=== PATIENT | female | born 1985 | race Caucasian/White ===

== ENCOUNTER 2019-01-26 15:12 | Emergency (ER) | payer OTHER ==
[~2019-01-26] VITALS: Ht 160 cm; Wt 61.4 kg
[~2019-01-26 15:12] MED LIST: AMOX250C17 PO; ATOR20TA37 PO; CARB25PO PO; LEVO100T5 PO; SERT50TA28 PO; [UNRECOGNIZED DRUG - CODE] PO
--- NOTE | 2019-01-26 15:30 | NUR ---
Pt BIB [facility], c/o anxiety exacerbation & 3 day binge drinking whiskey. [facility] Pt treated w/ 4mg Zofran POTATO LOADER, still complaining of nausea. Pt dressed in gown & belongings removed from room, sitter at doorway. Pt has been selfharming with no SI, states she has been cutting herself in order to attempt to control anxiety. Pt intoxicated at time of arrival, cooperative with RN.
--- NOTE | 2019-01-26 15:45 | NUR ---
Pt given saltines and sprite for continued nausea, sitter at doorway, NAD, no needs at this time
[2019-01-26] MEDS ORDERED: ZIPRASIDONE 20 MG INJ IM ONE ×2 (16:09→16:30)
[2019-01-26] MEDS ORDERED: DIPHENHYDRAMINE 50 MG/ML, 1ML IM ONE (16:30)
--- NOTE | 2019-01-26 16:30 | NUR ---
PT PLACED IN RESTRAINTS AT THIS TIME D/T PT'S INABILITY TO REFRAIN FROM SELF HARMING BEHAVIORS. PT WAS BANGING HER HEAD AGAIN BEDRAIL, NO INJURY NOTED. PT COOPERATIVE WITH RESTRAINING PROCESS, PT TEARFUL AND STATES "IT WAS OKAY FOR ME TO FIGHT YOUR WAR BUT IT'S NOT OKAY FOR ME TO DO THIS". RN ATTEMPTED TO COMFORT PT AND EXPLAIN THAT WE ARE TRYING TO HELP HER BUT WE CANNOT LET HER HARM HERSELF. SITTER AT DOORWAY, PT IN SUICIDE SECURED ROOM, ALL BELONGINGS PLACED IN SINGLE BAG AND LOCKED IN ED LOCKER. WCTM.
[2019-01-26 16:45] LABS: BASOPHILS # (AUTO) 0.02 x10^3/uL (0-0.1); BASOPHILS % (AUTO) 1 % (0-1); EOSINOPHILS # (AUTO) 0.05 x10^3/uL (0-0.4); EOSINOPHILS % (AUTO) 1 % (1-7); LYMPHOCYTES # (AUTO) 1.12 x10^3/uL (1-3.4); LYMPHOCYTES % (AUTO) 26 % (22-44); MD NO; MEAN CORPUSCULAR HEMOGLOBIN 30.7 pg (27.0-34.8); MEAN CORPUSCULAR HGB CONC 33.9 g/dL (32.4-35.8); MEAN CORPUSCULAR VOLUME 90.6 fL (80-100); MEAN PLATELET VOLUME 7.3 fL (7.4-10.4); MONOCYTES # (AUTO) 0.14 x10^3/uL (0.2-0.8); MONOCYTES % (AUTO) 3 % (2-9); NEUTROPHILS # (AUTO) 3.01 x10^3/uL (1.8-6.8); NEUTROPHILS % (AUTO) 69 % (42-75); PLATELET COUNT 241 x10^3/uL (130-400); RED BLOOD COUNT 4.82 x10^6/uL (3.82-5.3); RED CELL DISTRIBUTION WIDTH 13.6 % (9.6-15.2)
--- NOTE | 2019-01-26 16:45 | NUR ---
PT IN BED, GIVEN BLANKET, PT STILL STATES SHE IS UNABLE TO REFRAIN FROM HURTING HERSELF, SITTER AT DOORWAY, WCTM.
[2019-01-26 16:55] LABS: ALANINE AMINOTRANSFERASE 68 U/L (12-78); ANION GAP 13 mmol/L (5-15); CALCIUM 8.8 mg/dL (8.5-10.1); CHLORIDE 109 mmol/L (98-107); CREATININE 0.79 mg/dL (0.55-1.02)
[2019-01-26 16:56] LABS: SALICYLATE LEVEL < 1.7 mg/dL (2.8-20.0)
[2019-01-26 17:00] LABS: ALKALINE PHOSPHATASE 98 U/L (45-117); BILIRUBIN,TOTAL 0.5 mg/dL (0.2-1.0); TOTAL PROTEIN 7.4 g/dL (6.4-8.2)
--- NOTE | 2019-01-26 17:00 | NUR ---
Pt requesting to use the restroom, states that she will abstain from selfharming behavior, restrains D/C'ed at this time. Pt ambulating to restroom with RN assistance.
[2019-01-26 17:07] LABS: ACETAMINOPHEN < 2 mcg/mL (10-30)
--- NOTE | 2019-01-26 17:10 | NUR ---
Pt unable to urinate at this time, again stating that she will abstain from self harming behavior. Pt back in bed in suicide secured room, sitter at doorway, NAD, no needs at this time. ANALY.
--- NOTE | 2019-01-26 17:45 | NUR ---
Pt in bed in suicide secured room, NAD, no needs at this time, sitter at doorway, WCTM. Dinner tray ordered.
--- NOTE | 2019-01-26 19:06 | NUR ---
ASSUMED CARE OF PATIENT. BEDSIDE REPORT GIVEN TO ELADIO BARAJAS
[2019-01-26] MEDS ORDERED: DIPHENHYDRAMINE 50 MG/ML, 1ML ONE (19:11)
--- NOTE | 2019-01-26 19:26 | NUR ---
PT RESTING IN ROOM. PT GIVEN A WARM BLANKET. SITTER AT DOOR. WILL CONTINUE TO MONITOR.
--- NOTE | 2019-01-26 19:47 | NUR ---
PT PACING AROUND ROOM. DR BARNES AWARE. SITTER AT DOOR. WILL CONTINUE TO MONITOR.
[2019-01-26] MEDS ORDERED: LORazepam 1MG TABLET ONE (19:48)
--- NOTE | 2019-01-26 19:52 | NUR ---
PT GIVEN ATIVAN. NO ACUTE DISTRESS NOTED. SITTER AT DOOR. WILL CONTINUE TO MONITOR.
[2019-01-26] MEDS ORDERED: LORazepam 1MG TABLET PO ONE (20:00)
--- NOTE | 2019-01-26 20:38 | NUR ---
PT RESTING CALM IN ROOM. SITTER AT DOOR. WILL CONTINUE TO MONITOR.
--- NOTE | 2019-01-26 21:44 | NUR ---
PT RESTING IN ROOM. SITER AT DOOR. NO ACUTE DISTRESS NOTED. PT FEELING CALM. CALL LIGHT IN PLACE. WILL CONTINUE TO MONITOR.
--- NOTE | 2019-01-26 22:29 | NUR ---
PT RESTING IN ROOM. REGULAR RESP. SITTER AT DOOR. NO ACUTE DISTRESS NOTED. WILL CONTINUE TO MONITOR.
[2019-01-26 23:25] LABS: AMPHETAMINE SCREEN, URINE Negative (Negative); BARBITURATE SCREEN, URINE Negative (Negative); BENZODIAZEPINE SCREEN, URINE Negative (Negative); CANNABINOID SCREEN, URINE Positive (Negative); COCAINE SCREEN, URINE Negative (Negative); METHADONE SCREEN, URINE Negative (Negative); OPIATE SCREEN, URINE Negative (Negative)
--- NOTE | 2019-01-26 23:57 | NUR ---
TP RN: TELEPSYCH CONSULT INITIATED
--- NOTE | 2019-01-27 00:10 | NUR ---
PT RESTING IN ROOM. NO ACUTE DISTRESS NOTED. SITTER AT DOOR. WILL CONTINUE TO MONITOR.
--- NOTE | 2019-01-27 01:00 | NUR ---
REPORT GIVEN ELADIO AVILA
--- NOTE | 2019-01-27 01:04 | NUR ---
BEDSIDE REPORT GIVEN TO ELADIO AVILA
--- NOTE | 2019-01-27 01:05 | NUR ---
RECEIVED BS REPORT FROM ELADIO DIEGO TO ASSUME CARE OF PT. PT. SITTING UP ON HOSPITAL BED ROCKING BACK AND FORTH. GILMAR. ROOM IS SECURED AND SITTER IN [place]. Addendum: 01/27/19 at 0120 by JONI PT IS ON [facility], NOT HOSPITAL BED.
--- NOTE | 2019-01-27 01:12 | NUR ---
TELEPSYCH BOT PLACED IN ROOM AND PROCESS DISCUSSED WITH PT. PT. PACING AROUND ROOM STATING "I AM STARTING TO GET AMPED UP". OFFERED PT. SNACKS, DRINKS; PT. DECLINED "THAT WON'T HELP".
[2019-01-27] MEDS ORDERED: LORazepam 1MG TABLET ONE ×4 (01:16→13:37)
--- NOTE | 2019-01-27 01:18 | NUR ---
DISCUSSED PT. BEHAVIOR WITH DR. HANSEN, NEW ORDERS RECEIVED, AND PT. MEDICATED PER NOV. PT. DENIES OTHER NEEDS. SITTER REMAINS IN [place], ROOM REMAINS SECURED.
[2019-01-27] MEDS ORDERED: LORazepam 1MG TABLET PO ONE ×2 (01:30→10:30)
--- NOTE | 2019-01-27 02:30 | NUR ---
TELEPSYCH EVAL HAS BEEN COMPLETED. AWAITING MD RECOMMENDATION. PT. COOPERATIVE AT THIS TIME. DENIES NEEDS. ROOM REMAINS SECURED. SITTER IN [place].
--- NOTE | 2019-01-27 04:38 | NUR ---
[facility] IN TO EVAL PT. FOR ADMISSION. VS UPDATED. PT. PROVIDED WITH WATER PER REQUEST. NADN. SKIN PWD. RESP EVEN, NON-LABORED. ROOM REMAINS SECURED. SITTER IN [place] .
[2019-01-27] MEDS ORDERED: ONDANSETRON ODT 4 MG ONE ×2 (05:46→10:11)
[2019-01-27] MEDS: ONDANSETRON ODT 4 MG PO PRN ×2 (05:49→10:17)
[2019-01-27] MEDS: LORazepam 1MG TABLET PO PRN ×2 (05:49→13:35)
--- NOTE | 2019-01-27 05:49 | NUR ---
PT. C/O FEELING ANXIOUS AND NAUSEATED. PT. MEDICATED PER MAR. CALM AND COOPERATIVE WITH STAFF. NO TREMORS OR S/S OF ETOH WITHDRAWL NOTED. PT. DENIES OTHER NEEDS. ROOM REMAINS SECURED. SITTER IN [place].
--- NOTE | 2019-01-27 06:04 | NUR ---
tp:faxed packet to [facility]
--- NOTE | 2019-01-27 07:11 | NUR ---
Recieved bedside report from ELADIO Hoover. All questions answered. Assuming care of pt. Pt asleep on [facility]. Pt has even chest rise and fall. NADN. No needs expressed. SI precautions in place. Sitter near doorway in direct line of sight for observation.
--- NOTE | 2019-01-27 08:30 | NUR ---
Pt asleep on [facility]. GILMAR. No needs expressed. Pt has unlabored respirations with even chest rise and fall. Sitter near doorway in direct line of sight for observaiton.
[2019-01-27] MEDS ORDERED: SERTRALINE 50MG TABLET ONE (08:39)
--- NOTE | 2019-01-27 08:51 | NUR ---
Provided bedside report to ELADIO Van. All questions answered. ELADIO Van to assume care of pt.
[2019-01-27] MEDS ORDERED: LEVOTHYROXINE 100 MCG TABLET PO SCH (09:00)
[2019-01-27] MEDS ORDERED: SERTRALINE 50MG TABLET PO SCH (09:00)
--- NOTE | 2019-01-27 09:15 | NUR ---
Assumed care of pt. Pt was sleeping, woke gave meal tray, zoloft. Pt calm and cooperative. No complaints. Reassessed. Pt still waiting for bed assignment
[2019-01-27] MEDS ORDERED: LORazepam 1MG TABLET PO STA (10:01)
--- NOTE | 2019-01-27 10:17 | NUR ---
PT PACING IN ROOM. TEARY. STATES SHE FEELS LIKE SHE IS TRAPPED. CALMED PT AND SPOKE WITH HER REGARDING HER PLAN OF CARE AND WAITING FOR A BED ON 2N. PT ALSO COMPLAIN OF NAUSEA. MEDICATED WITH ATIVAN AND ZOFRAN
[2019-01-27] MEDS ORDERED: ONDANSETRON ODT 4 MG PO PRN (10:30)
--- NOTE | 2019-01-27 12:32 | NUR ---
PACKET FAXED TO [facility], [facility], [facility] AND [facility]
--- NOTE | 2019-01-27 13:42 | NUR ---
PT WITH INCREASED ANXIETY. REMEDICATED WITH PRN ATIVAN PER ORDERS.
[2019-01-27] MEDS ORDERED: NICOTINE 14MG/24 HR PATCH.TD24 TD SCH (14:00)
--- NOTE | 2019-01-27 14:35 | NUR ---
REPORT GIVEN TO RN AT [facility]. PT TO GO BY MANOLO MELLO 1700.
--- NOTE | 2019-01-27 14:57 | NUR ---
REPORT TO ASHER
--- NOTE | 2019-01-27 15:05 | NUR ---
Report from Carlota HENDRICKS, pt denies any needs/concerns, awaiting transport to [facility], calm, cooperative. Sitter remains at door
--- NOTE | 2019-01-27 16:27 | NUR ---
Pt updated on ETA for [facility], continues to deny any needs/concerns.
[2019-01-27 17:22] VITALS: BP 135/96
--- NOTE | 2019-01-27 17:23 | NUR ---
Report to [facility], pt confirmed all belongings were present and given to [facility] for transport. Pt ambulated to ambulance, calm, cooperative.
== END 2019-01-27 17:33 ==
LOC: ED 19:47 → UNDOADMIN 01-27 03:47 → EDIP 01-27 03:47 → ED 01-27 17:33
DX: S00.83XA Contusion of other part of head, initial encounter (principal); F41.1 Generalized anxiety disorder; F10.129 Alcohol abuse with intoxication, unspecified; X58.XXXA Exposure to other specified factors, initial encounter; Y93.89 Activity, other specified; Y92.89 Other specified places as the place of occurrence of the external cause; Y99.8 Other external cause status
CPT/HCPCS: 36415; 80053; 80307; 84443; 84703; 85025; 93005; 96372; 99285; J1200; J3486; Q0162

== ENCOUNTER 2019-02-11 18:30 | Emergency (ER) | payer OTHER ==
[~2019-02-11] VITALS: Ht 172.7 cm; Wt 70.0 kg
[2019-02-11 19:08] LABS: BASOPHILS # (AUTO) 0.02 x10^3/uL (0-0.1); BASOPHILS % (AUTO) 0 % (0-1); EOSINOPHILS # (AUTO) 0.11 x10^3/uL (0-0.4); EOSINOPHILS % (AUTO) 2 % (1-7); LYMPHOCYTES # (AUTO) 1.65 x10^3/uL (1-3.4); LYMPHOCYTES % (AUTO) 27 % (22-44); MD NO; MEAN CORPUSCULAR HEMOGLOBIN 29.8 pg (27.0-34.8); MEAN CORPUSCULAR HGB CONC 32.6 g/dL (32.4-35.8); MEAN CORPUSCULAR VOLUME 91.5 fL (80-100); MEAN PLATELET VOLUME 7.2 fL (7.4-10.4); MONOCYTES # (AUTO) 0.21 x10^3/uL (0.2-0.8); MONOCYTES % (AUTO) 4 % (2-9); NEUTROPHILS # (AUTO) 4.13 x10^3/uL (1.8-6.8); NEUTROPHILS % (AUTO) 67 % (42-75); PLATELET COUNT 251 x10^3/uL (130-400); RED BLOOD COUNT 4.66 x10^6/uL (3.82-5.3); RED CELL DISTRIBUTION WIDTH 13.1 % (9.6-15.2)
--- NOTE | 2019-02-11 19:10 | NUR ---
RECEIVED REPORT FROM APOORVA HENDRICKS. PT RESTING IN [facility] IN [facility] BEING OBSERVED BY RENE. REPORT TO DANNY Duong RN FOR LUNCH BREAK.
[2019-02-11 19:19] LABS: ALANINE AMINOTRANSFERASE 70 U/L (12-78); ANION GAP 15 mmol/L (5-15); CALCIUM 8.8 mg/dL (8.5-10.1); CHLORIDE 107 mmol/L (98-107); CREATININE 1.01 mg/dL (0.55-1.02)
[2019-02-11 19:20] LABS: SALICYLATE LEVEL < 1.7 mg/dL (2.8-20.0)
[2019-02-11 19:24] LABS: ALKALINE PHOSPHATASE 78 U/L (45-117); BILIRUBIN,TOTAL 0.2 mg/dL (0.2-1.0); TOTAL PROTEIN 7.3 g/dL (6.4-8.2)
[2019-02-11 19:27] LABS: ACETAMINOPHEN < 2 mcg/mL (10-30)
--- NOTE | 2019-02-11 19:50 | NUR ---
DANNY Duong RN ATTEMPTING TO GET URINE FROM PT.
[2019-02-11 20:18] LABS: AMPHETAMINE SCREEN, URINE Negative (Negative); BARBITURATE SCREEN, URINE Negative (Negative); BENZODIAZEPINE SCREEN, URINE Positive (Negative); CANNABINOID SCREEN, URINE Positive (Negative); COCAINE SCREEN, URINE Negative (Negative); METHADONE SCREEN, URINE Negative (Negative); OPIATE SCREEN, URINE Negative (Negative)
--- NOTE | 2019-02-11 20:20 | NUR ---
PT'S ETHANOL LEVEL WAS 0.300. WAITING FOR PT TO BECOME SOBER SO SHE CAN BE EVALUATED. PT WAS PLACED ON LEGAL HOLD BY [employer] BUT PT WAS INTOXICATED AT THE TIME.
--- NOTE | 2019-02-11 20:46 | NUR ---
BP 90/60. DR. BAIRES AWARE AND NO MORE FLUIDS WARRANTED AT THIS TIME PER DR. BAIRES.
--- NOTE | 2019-02-11 22:26 | NUR ---
REPORT TO JOHNATHON HENDRICKS.
--- NOTE | 2019-02-11 22:31 | NUR ---
REPORT GIVEN TO ELADIO VÁSQUEZ
--- NOTE | 2019-02-11 23:30 | NUR ---
PT RESTING IN ROOM. REGULAR RESP. NO ACUTE DISTRESS NOTED. VS STABLE.W ILL CONTINUE TO MONITOR.
--- NOTE | 2019-02-12 00:35 | NUR ---
PT RESTING CALMLY IN BED WITH EYES CLOSED. NO STATED NEEDS AT THIS TIME. WILL CONTINUE TO MONITOR. SITTER AT DOOR.
--- NOTE | 2019-02-12 01:42 | NUR ---
PT O2 TURNED OFF. PT BP IMPROVING WITH REPOSITIONING. PT NOW SOBER, SEE CHARTED BRETHYLIZER. PT DENIED SI/HI. PT STATED SHE WAS NEVER SI. PT DENIED ANY PAIN AT THIS TIME. WILL CONTINUE TO MONITOR. PT HAS BEEN CALM, RESTING IN BED WITH EYES CLOSED.
[2019-02-12 02:13] VITALS: BP 99/66
--- NOTE | 2019-02-12 02:19 | NUR ---
PT DENIES SI, HI. PT ALERT AND A&O X4. PT IS ABLE TO WALK AROUND ROOM AND HALLWAY SAFELY. VS STABLE. PT DISCHARGED BY DR BAIRES.
== END 2019-02-12 02:18 | disposition home or self-care (01) ==
LOC: ED 20:43
DX: F10.220 Alcohol dependence with intoxication, uncomplicated (principal); F41.1 Generalized anxiety disorder; F17.200 Nicotine dependence, unspecified, uncomplicated
CPT/HCPCS: 36415; 80053; 80307; 84703; 85025; 99283

== ENCOUNTER 2019-12-20 16:36 | Emergency (ER) | payer OTHER ==
[~2019-12-20] VITALS: Ht 157.5 cm; Wt 60.0 kg
--- NOTE | 2019-12-20 17:00 | NUR ---
jaylyn jones and [employer]. cut self, called crisis hotline. 3 lacs L forearm. hx self harm. on legal.
[2019-12-20 17:28] LABS: BASOPHILS # (AUTO) 0.04 x10^3/uL (0-0.1); BASOPHILS % (AUTO) 1 % (0-1); EOSINOPHILS # (AUTO) 0.02 x10^3/uL (0-0.4); EOSINOPHILS % (AUTO) 0 % (1-7); LYMPHOCYTES # (AUTO) 1.81 x10^3/uL (1-3.4); LYMPHOCYTES % (AUTO) 27 % (22-44); MD NO; MEAN CORPUSCULAR HEMOGLOBIN 30.3 pg (27.0-34.8); MEAN CORPUSCULAR HGB CONC 34.3 g/dL (32.4-35.8); MEAN CORPUSCULAR VOLUME 88.5 fL (80-100); MEAN PLATELET VOLUME 7.9 fL (7.4-10.4); MONOCYTES # (AUTO) 0.33 x10^3/uL (0.2-0.8); MONOCYTES % (AUTO) 5 % (2-9); NEUTROPHILS # (AUTO) 4.52 x10^3/uL (1.8-6.8); NEUTROPHILS % (AUTO) 67 % (42-75); PLATELET COUNT 232 x10^3/uL (130-400); RED BLOOD COUNT 4.59 x10^6/uL (3.82-5.3); RED CELL DISTRIBUTION WIDTH 13.9 % (9.6-15.2)
[2019-12-20] MEDS ORDERED: LIDOCAINE 2%, 20ML SQ ONE (17:30)
[2019-12-20 17:40] LABS: ALBUMIN 3.8 g/dL (3.4-5.0); ANION GAP 10 mmol/L (5-15); CALCIUM 9.1 mg/dL (8.5-10.1); CHLORIDE 110 mmol/L (98-107)
[2019-12-20 17:42] LABS: SALICYLATE LEVEL < 1.7 mg/dL (2.8-20.0)
[2019-12-20 17:46] LABS: ALKALINE PHOSPHATASE 68 U/L (45-117); BILIRUBIN,TOTAL 0.4 mg/dL (0.2-1.0); CREATININE 0.82 mg/dL (0.55-1.02)
[2019-12-20 17:49] LABS: ALANINE AMINOTRANSFERASE 26 U/L (12-78)
--- NOTE | 2019-12-20 18:39 | NUR ---
PT GIVEN MEAL TRAY
--- NOTE | 2019-12-20 18:55 | NUR ---
REPORT RECEIVED FROM ELADIO STERLING. ASSUMED CARE OF PT.
[2019-12-20] MEDS ORDERED: ONDANSETRON ODT 8 MG ONE (19:33)
--- NOTE | 2019-12-20 19:38 | NUR ---
PT STEADY UPON AMBULATION TO RESTROOM AND BACK TO [facility]. URINE SAMPLE OBTAINED AND SENT TO LAB. PT AO X 4. SKIN PWD. RESP EVEN AND UNLABORED. PT C/O NAUSEA AFTER DRINKING "A LOT". PT AWARE WE ARE WAITING FOR LAB/IMAGING RESULTS. PT'S BELONGINGS SECURED AND SITTER AT DOORSIDE. WILL CONT TO MONITOR PT.
[2019-12-20 19:52] LABS: BENZODIAZEPINE SCREEN, URINE Negative (Negative); CANNABINOID SCREEN, URINE Positive (Negative); COCAINE SCREEN, URINE Negative (Negative); METHADONE SCREEN, URINE Negative (Negative); OPIATE SCREEN, URINE Negative (Negative)
[2019-12-20 19:53] LABS: AMPHETAMINE SCREEN, URINE Negative (Negative); BARBITURATE SCREEN, URINE Negative (Negative)
[2019-12-20] MEDS ORDERED: PROMETHAZINE 25 MG/ML, 1ML IM STA (20:08)
[2019-12-20] MEDS ORDERED: PROMETHAZINE 25 MG/ML, 1ML ONE (20:09)
--- NOTE | 2019-12-20 20:19 | NUR ---
PT C/O NAUSEA. MEDICATED ORDERED BY KORINA WHELAN WHO WAS AT BEDSIDE FOR LAC REPAIR. PT CURRENTLY DENIES SI/HI. PT AO X 4. SPEECH CLEAR. SKIN PWD. RESP EVEN AND UNLABORED. PT ON CONT BP AND O2 MONITORS .CALL LIGHT WITHIN REACH. WILL CONT TO MONTIOR PT.
--- NOTE | 2019-12-20 20:23 | NUR ---
REPORT TO ELADIO WOOD WHO ASSUMED CARE OF PT.
[2019-12-20] MEDS ORDERED: ONDANSETRON ODT 4 MG PO ONE (20:30)
--- NOTE | 2019-12-20 20:38 | NUR ---
water to pt for po challange. pt says nausea is better. will reassess shortly
[2019-12-20 21:33] VITALS: BP 99/70
--- NOTE | 2019-12-20 21:34 | NUR ---
PTS BEL.ONGINGS RETURNED. VSS. PT VERBALIZED UNDERSTANDING OF DISCHARGE INSTRUCTIONS. PT AMBULATED OUT OF ER WITH A STEADY GAIT.
== END 2019-12-20 21:37 | disposition home or self-care (01) ==
LOC: ED 18:24
DX: F33.9 Major depressive disorder, recurrent, unspecified (principal); S51.812A Laceration without foreign body of left forearm, initial encounter; S51.811A Laceration without foreign body of right forearm, initial encounter; F10.120 Alcohol abuse with intoxication, uncomplicated; Z91.14 Patient's other noncompliance with medication regimen; X78.9XXA Intentional self-harm by unspecified sharp object, initial encounter; Y93.89 Activity, other specified; Y92.89 Other specified places as the place of occurrence of the external cause; Y99.8 Other external cause status; Y90.0 Blood alcohol level of less than 20 mg/100 ml
CPT/HCPCS: 12031; 36415; 80053; 80307; 84703; 85025; 96372; 99284; J2550; J3490; Q0162